=== PATIENT | male | born 1960 | race African-American/Black ===

== ENCOUNTER 2025-06-11 04:07 | Emergency (ER) | payer SELFPAY ==
[~2025-06-11] VITALS: Ht 177.8 cm; Wt 72.0 kg
[~2025-06-11 04:07] MED LIST: UNK MEDS
[2025-06-11 04:18] VITALS: O2SAT 99
[2025-06-11] MEDS: DIPHENHYDRAMINE 50MG/ML VIAL IM ONE (05:16)
[2025-06-11] MEDS: SODIUM CHLORIDE 0.9% 1,000 ML IV ONE (05:17)
[2025-06-11] MEDS: HALOPERIDOL LACTATE 5MG/ML VIAL IM ONE (05:17)
[2025-06-11 05:46] LABS: HEMATOCRIT. 38.6 % (42.0-52.0); HEMOGLOBIN. 13.1 g/dL (14.0-18.0); MEAN PLATELET VOLUME 7.7 fl (7.4-10.4); PLATELET 381 x1000/uL (130-400); RED BLOOD CELL COUNT 4.12 mill/uL (4.7-6.1); RED CELL DISTRIBUTION WIDTH 13.1 % (11.6-14.6)
[2025-06-11 05:57] LABS: CREATININE 2.2 mg/dL (0.6-1.3); UREA NITROGEN BLOOD 35 mg/dL (9-23)
[2025-06-11 05:58] LABS: ETHANOL BLOOD < 10 mg/dL (<10)
[2025-06-11 05:59] LABS: ASPARTATE AMINOTRANSFERASE 170 IU/L (<34); BILIRUBIN DIRECT 0.8 mg/dL (<=3.0)
[2025-06-11 06:00] LABS: BILIRUBIN TOTAL 2.6 mg/dL (0.1-1.0); PROTEIN TOTAL 7.8 g/dL (6.0-8.3)
[2025-06-11 08:32] LABS: BAND% 4.0 % (1.0-6.0); LYMPHOCYTES % MANUAL 4.0 % (20.0-50.0); MONOCYTES % MANUAL 5.0 % (2.0-8.0); NEUTROPHILS % MANUAL 87.0 % (45.0-75.0); PLATELET ESTIMATE NORMAL
[2025-06-11 10:57] VITALS: BP 121/80; PULSE 81; RESP 22; TEMP 36.7; O2SAT 98
[2025-06-11] MEDS ORDERED: IBUP-2029 MT (14:59)
[2025-06-12] MEDS ORDERED: TOPUD MT (00:28)
== END 2025-06-11 10:58 | disposition home or self-care (01) ==
LOC: ER 05:24
DX: F15.10 Other stimulant abuse, uncomplicated (principal); G92.9 Unspecified toxic encephalopathy; Z79.899 Other long term (current) drug therapy
CPT/HCPCS: 80076; 80048; 80307; 80329; 80320; 85025; 36415; 96360; 96372; 99284; J1200; J1630; J2060; Z7610; A4606; G0480

== ENCOUNTER 2025-06-11 13:02 | Emergency (ER) | payer SELFPAY ==
[~2025-06-11] VITALS: Ht 177.8 cm; Wt 74.0 kg
[2025-06-11 13:04] VITALS: TEMP 36.9; O2SAT 100; O2SAT 98
[2025-06-11 14:02] VITALS: BP 122/80; PULSE 96; RESP 16
[2025-06-11] MEDS: IBUPROFEN 600MG TABLET PO ONE (14:02)
[2025-06-11] MEDS ORDERED: IBUP-2029 MT (14:59)
[2025-06-12] MEDS ORDERED: TOPUD MT (00:28)
== END 2025-06-11 16:15 | disposition home or self-care (01) ==
LOC: ER 13:02
DX: S70.00XA Contusion of unspecified hip, initial encounter (principal); M54.9 Dorsalgia, unspecified; F12.90 Cannabis use, unspecified, uncomplicated; X58.XXXA Exposure to other specified factors, initial encounter; Y93.89 Activity, other specified; Y92.89 Other specified places as the place of occurrence of the external cause; Y99.8 Other external cause status
CPT/HCPCS: 73522; 99283

== ENCOUNTER 2025-06-11 22:04 | Emergency (ER) | payer SELFPAY ==
[~2025-06-11] VITALS: Ht 177.8 cm; Wt 79.0 kg
[~2025-06-11 22:04] MED LIST changes: +IBUP-2029 MT
[2025-06-11 22:25] VITALS: O2SAT 98
[2025-06-12] MEDS ORDERED: TOPUD MT (00:28)
[2025-06-12] MEDS: METHOCARBAMOL 500MG TABLET PO ONE (00:50)
[2025-06-12] MEDS: IBUPROFEN 600MG TABLET PO ONE (00:51)
[2025-06-12 04:45] VITALS: BP 118/69; PULSE 69; RESP 13; TEMP 36.6; O2SAT 100
== END 2025-06-12 04:48 | disposition home or self-care (01) ==
LOC: ER 22:04
DX: F15.10 Other stimulant abuse, uncomplicated (principal); F12.90 Cannabis use, unspecified, uncomplicated; M54.2 Cervicalgia; Z98.890 Other specified postprocedural states; Z59.00 Homelessness unspecified
CPT/HCPCS: 99283

== ENCOUNTER 2025-06-18 13:44 | Emergency (ER) | payer MEDICAID ==
[~2025-06-18] VITALS: Ht 175.3 cm; Wt 63.0 kg
[~2025-06-18 13:44] MED LIST changes: +TOPUD MT
[2025-06-18 14:33] VITALS: O2SAT 97
[2025-06-18] MEDS: LORAZEPAM 2MG/ML UD SYRINGE IM NR (14:33)
[2025-06-18] MEDS: MIDAZOLAM HCL 5 MG/ML VIAL IM ONE (14:33)
[2025-06-18] MEDS: DIPHENHYDRAMINE 50MG/ML VIAL IM ONE (14:33)
[2025-06-18 15:14] LABS: BASOPHILS % 0.8 % (0.0-2.0); EOSINOPHILS % 0.4 % (0.0-5.0); HEMATOCRIT. 33.9 % (42.0-52.0); HEMOGLOBIN. 11.3 g/dL (14.0-18.0); LYMPHOCYTES % 18.7 % (20.0-50.0); MEAN PLATELET VOLUME 6.4 fl (7.4-10.4); MONOCYTES % 4.3 % (2.0-8.0); NEUTROPHILS % 75.8 % (40.0-76.0); PLATELET 509 x1000/uL (130-400); RED BLOOD CELL COUNT 3.52 mill/uL (4.7-6.1); RED CELL DISTRIBUTION WIDTH 13.8 % (11.6-14.6)
[2025-06-18 15:32] LABS: CREATININE 1.0 mg/dL (0.6-1.3); UREA NITROGEN BLOOD 10 mg/dL (9-23)
[2025-06-18 15:42] LABS: ETHANOL BLOOD 380 mg/dL (<10)
[2025-06-18 15:54] LABS: *AMPHETAMINES SCREEN URINE NEGATIVE (NEGATIVE)
[2025-06-18 15:55] LABS: *BARBITURATES SCREEN URINE NEGATIVE (NEGATIVE); *BENZODIAZEPINES SCREEN URINE NEGATIVE (NEGATIVE); *COCAINE SCREEN URINE NEGATIVE (NEGATIVE); CANNABINOID URINE SCREEN NEGATIVE (NEGATIVE); ECSTASY MDMA SCREEN URINE NEGATIVE (NEGATIVE); METHADONE URINE SCREEN NEGATIVE (NEGATIVE); OPIATES URINE SCREEN NEGATIVE (NEGATIVE); PHENCYCLIDINE URINE SCREEN NEGATIVE (NEGATIVE)
[2025-06-18 23:15] VITALS: BP 106/56; PULSE 73; RESP 14; TEMP 37; O2SAT 99
== END 2025-06-19 02:30 | disposition home or self-care (01) ==
LOC: ER 13:44
DX: F10.129 Alcohol abuse with intoxication, unspecified (principal); F19.20 Other psychoactive substance dependence, uncomplicated; Z20.822 Contact with and (suspected) exposure to COVID-19; Z98.890 Other specified postprocedural states; Y90.8 Blood alcohol level of 240 mg/100 ml or more
CPT/HCPCS: 80305; 80048; 80320; 85025; 36415; 96372; 99285; 87426; J1200; J2060; J2250; G0480